=== PATIENT | female | born 2000 | race Caucasian/White ===

== ENCOUNTER 2020-04-02 19:04 | Emergency (ER) | payer BC, SELFPAY ==
[2020-04-02 19:17] VITALS: BP 143/91; PULSE 77; RESP 21; TEMP 36.6; O2SAT 99; BMI 38.9
--- NOTE | 2020-04-02 19:29 | HMH.EDUTC ---
[facility] [place] Disposition Clinical Impression: Exposure to COVID-19 virus Disposition: Home, Self-Care Condition on Discharge: Good Instructions: Preventing the Spread of Coronavirus Discharge Instructions Additional Instructions: Drink plenty of fluids. Take tylenol or ibuprofen for pain or fever. Take the medications as directed. Follow up with your regular doctor. GO TO THE ER FOR ANY WORSENING SYMPTOMS FOLLOW THE DIRECTIONS ON THE COVID-19 HAND OUT THAT WE GAVE YOU REGARDING SELF-ISOLATION UNTIL YOU KNOW YOUR COVID-19 RESULTS Prescriptions: Ondansetron [Zofran 4mg ODT] 4 mg PO Q8HP PRN #20 tab.rapdis PRN Reason: Nausea Transmission Status: Received by [id number] Referrals: Sam Gustafson II [Primary Care Provider] - Forms: Work/School Release Time of Disposition: 19:34 Medical Decision Making - Medical Records Medical records reviewed: No: I reviewed the patient's medical records. - Arnaud Inquiry Pt receiving controlled substance: No Vital Signs: 04/02/20 19:17 04/02/20 19:41 Temperature 97.9 F 97.9 F Temperature Source Oral Oral Pulse Rate 77 Pulse Rate [Radial] 77 Respiratory Rate 21 21 Blood Pressure 143/91 H Blood Pressure [Right Arm] 143/91 H Blood Pressure Mean [Right Arm] 108 Blood Pressure Source Automatic Cuff Blood Pressure Source [Right Arm] Automatic Cuff Blood Pressure Position Sitting Blood Pressure Position [Right Arm] Sitting 02 Sat by Pulse Oximetry 99 Oxygen Delivery Method Room Air Room Air [facility] [place] HPI - General Stated complaint: wants COVID Testing Time Seen by Provider: 04/02/20 19:29 Mode of Arrival: Ambulatory Source of Information: Patient Limitations: No Limitations Description of Symptoms (Recalled from Triage Doc. 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 Reports that she has been nauseous, headache, cough, runny nose. 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 She has had nausea and a runny nose, but no fever or chills. - Related Data Home Medications Medication Instructions Recorded Confirmed sertraline 50 mg tablet 50 mg PO DAILY 07/10/19 10/22/19 Previous Rx's Medication Instructions Recorded Amoxicillin/Potassium Clav 1 tab PO Q12H 10 Days #20 tab 10/22/19 [Augmentin 875-125 Tablet] Ondansetron [Zofran 4mg ODT] 4 mg PO Q8HP PRN #9 tab.rapdis 10/22/19 predniSONE [Deltasone 10mg tablet] 10 mg PO BID 3 Days #6 tab 10/22/19 Ondansetron [Zofran 4mg ODT] 4 mg PO Q8HP PRN #20 tab.rapdis 04/02/20 Allergies Allergy/AdvReac Type Severity Reaction Status Date / Time No Known Allergies Allergy Verified 09/17/19 10:31 - Worker's Comp Is this a Worker's Comp case?: No [facility] History - Hepatitis A Screen Drug use history?: No High risk sexual behaviors?: No History of sexually transmitted infection?: No Currently employed?: No Childcare worker?: No Do you have indoor plumbing?: Yes Do you have electricity?: Yes Attestation statement:: This patient has been screened for Hepatitis A risk factors. I have reviewed the patient's past medical history: Yes Medical History: Reports:: Anxiety Other Medical History: Reports: Thyroid Disease Comment: left great toe surgery x2 - Social History Smoking Status: Never smoker Alcohol Intake: never Substance Use Type: denies use Occupational Status: employed Housing: house Household Members: family - Psychiatric History Pschychiatric History:: Reports:: Anxiety Family Hx:: Non-contributory ROS Obtained: Yes All systems reviewed & no additional complaints - Constitutio
[2020-04-02 19:41] VITALS: BP 143/91; PULSE 77; RESP 21; TEMP 36.6; O2SAT 99
== END 2020-04-02 19:41 | disposition home or self-care (01) ==
PROVIDERS: Emergency Provider Nurse Practitioner Family; PCP Family Medicine
DX: Z20.828 Contact with and (suspected) exposure to other viral communicable diseases (principal)
CPT/HCPCS: 99201; U0003

== ENCOUNTER 2020-07-21 09:24 | Emergency (ER) | payer BC, SELFPAY ==
[2020-07-21 09:25] VITALS: BP 145/88; PULSE 109; RESP 18; TEMP 37; O2SAT 98; BMI 38.9
--- NOTE | 2020-07-21 10:02 | HMH.EDUTC ---
[facility] [place] Disposition Clinical Impression: Nausea Sinusitis Qualifiers: Sinusitis location: unspecified location Chronicity: unspecified Qualified Code(s): J32.9 - Chronic sinusitis, unspecified Disposition: Home, Self-Care Condition on Discharge: Good Instructions: Sinusitis, DI for Sinusitis, Amoxicillin and Clavulanic Acid, Methylprednisolone Additional Instructions: *Monitor Temp, Over the counter Motrin or Tylenol as directed/as needed Tylenol every 4 hours and Motrin every 6 hours (as long as your family doctor has told you that you can take it) for fever or pain. and straight to ER if unable to lower temp less than 101.0 after medication given *Warm salt water gargles may help to soothe the throat *Throat Lozenges *Warm fluids like tea with honey may help to soothe the throat *Sleep elevated *Humidifier/Vaporizer *Flonase 2 sprays in each nostril daily but be aware that it may take 2-3 days before you notice improvement Take medication as prescribed Return if needed Follow up IMMEDIATELY for new or worsening symptoms or no Noticeable improvement over the next 48-72 hours. 911 for difficulty breathing or swallowing Prescriptions: Amoxicillin/Potassium Clav [Augmentin 875-125 Tablet] 1 tab PO Q12H 7 Days #14 tab Transmission Status: P[facility] to [facility] Fluticasone Propionate [Flonase 50mcg nasal spray 16gm] 1 spr NS DAILY #1 bottle Transmission Status: Pending to [facility] methylPREDNISolone [Medrol 4mg tab] 4 mg PO DIRECTED #21 tab Transmission Status: Pending to [facility] Ondansetron [Zofran 4mg ODT] 4 mg PO TIDP PRN #9 tab PRN Reason: Nausea Transmission Status: [facility] Referrals: Sam Gustafson II [Primary Care Provider] - As needed Time of Disposition: 10:09 Medical Decision Making - Arnaud Inquiry Pt receiving controlled substance: No Arnaud was queried for this patient: No Vital Signs: 07/21/20 09:25 Temperature 98.6 F Temperature Source Oral Pulse Rate [Right Brachial] 109 H Respiratory Rate 18 Blood Pressure [Right Arm] 145/88 H Blood Pressure Mean [Right Arm] 107 Blood Pressure Source [Right Arm] Automatic Cuff Blood Pressure Position [Right Arm] Sitting 02 Sat by Pulse Oximetry 98 Oxygen Delivery Method Room Air [facility] [place] HPI - General Stated complaint: vomiting Time Seen by Provider: 07/21/20 10:02 Mode of Arrival: Ambulatory Source of Information: Patient Limitations: No Limitations Description of Symptoms (Recalled from Triage Doc. by RN): PATIENT C/O SINUS DRAINAGE, THROAT BURNING, AND NAUSEA/VOMITING SINCE YESTERDAY HEENT Symptoms (Recalled from RN notes): Yes Resp Symptoms (Recalled from RN notes): No Skin Symptoms (Recalled from RN notes): No MS Symptoms (Recalled from RN notes): No Functional Status (Recalled from RN notes): WNL - History of Present Illness Provider Complaint: Patient states that she has been having sinus pain and pressure for over a week States that for the last couple of days she has been having drainage that is making her throat irritated and making her have upset stomach States she feels like she has a sinus infection again - Related Data Home Medications Medication Instructions Recorded Confirmed sertraline 50 mg tablet 50 mg PO DAILY 07/10/19 07/21/20 Previous Rx's Medication Instructions Recorded Amoxicillin/Potassium Clav 1 tab PO Q12H 7 Days #14 tab 07/21/20 [Augmentin 875-125 Tablet] Fluticasone Propionate [Flonase 1 spr NS DAILY #1 bottle 07/21/20 50mcg nasal spray 16gm] Ondansetron [Zofran 4mg ODT] 4 mg PO TIDP PRN #9 tab 07/21/20 methylPREDNISolone [Medrol 4mg 4 mg PO DIRECTED #21 tab 07/21/20 tab] Allergies Allergy/AdvReac Type Severity Reaction Status Date / Time No Known Allergies Allergy Verified 09/17/19 10:31 - Worker's Comp Is this a Worker's Comp case?: No [facility] History - Hepatitis A Screen Drug use histor
[2020-07-21 10:15] VITALS: BP 145/88; PULSE 109; RESP 18; TEMP 37; O2SAT 98
== END 2020-07-21 10:18 | disposition home or self-care (01) ==
PROVIDERS: Emergency Provider Nurse Practitioner; PCP Family Medicine
DX: J32.9 Chronic sinusitis, unspecified (principal); F41.9 Anxiety disorder, unspecified; Z79.899 Other long term (current) drug therapy
CPT/HCPCS: 99201

== ENCOUNTER 2020-09-02 09:50 | Emergency (ER) | payer BC, SELFPAY ==
[2020-09-02 10:10] VITALS: BP 119/73; PULSE 88; RESP 19; TEMP 36.8; O2SAT 98; BMI 38.9
--- NOTE | 2020-09-02 10:32 | HMH.EDUTC ---
[facility] [place] Disposition Clinical Impression: Sore throat (viral) Disposition: Home, Self-Care Condition on Discharge: Good Instructions: Sore Throat Additional Instructions: *Monitor Temp, Over the counter Motrin or Tylenol as directed/as needed Tylenol every 4 hours and Motrin every 6 hours (as long as your family doctor has told you that you can take it) for fever or pain. and straight to ER if unable to lower temp less than 101.0 after medication given *Warm salt water gargles may help to soothe the throat *Throat Lozenges *Warm fluids like tea with honey may help to soothe the throat *Sleep elevated *Humidifier/Vaporizer *Flonase 2 sprays in each nostril daily but be aware that it may take 2-3 days before you notice improvement Your throat swab was sent for culture. Those results are typically sent to your primary care. Be sure to follow up in 2-3 days with your family doctor/primary care physician if no improvement so they can review those result and treat if necessary. If you don?t have a primary care doctor, I recommend you get one but in the mean time, you will have to return to a walk in clinic Follow up IMMEDIATELY for new or worsening symptoms or no Noticeable improvement over the next 48-72 hours. 911 for difficulty breathing or swallowing Referrals: Sam Gustafson II [Primary Care Provider] - As needed Time of Disposition: 10:34 Medical Decision Making - Arnaud Inquiry Pt receiving controlled substance: No Arnaud was queried for this patient: No Vital Signs: 09/02/20 10:10 Temperature 98.2 F Temperature Source Oral Pulse Rate [Right Brachial] 88 Respiratory Rate 19 Blood Pressure [Right Arm] 119/73 Blood Pressure Mean [Right Arm] 88 Blood Pressure Source [Right Arm] Automatic Cuff Blood Pressure Position [Right Arm] Sitting 02 Sat by Pulse Oximetry 98 Oxygen Delivery Method Room Air - Lab Data Lab results reviewed: Yes: I reviewed the patient's lab results. [facility] [place] HPI - General Stated complaint: Possible strep Time Seen by Provider: 09/02/20 10:32 Mode of Arrival: Ambulatory Source of Information: Patient Limitations: No Limitations Description of Symptoms (Recalled from Triage Doc. 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 and she wanted to get tested - Related Data Home Medications Medication Instructions Recorded Confirmed sertraline 50 mg tablet 50 mg PO DAILY 07/10/19 07/21/20 Previous Rx's Medication Instructions Recorded Amoxicillin/Potassium Clav 1 tab PO Q12H 7 Days #14 tab 07/21/20 [Augmentin 875-125 Tablet] Fluticasone Propionate [Flonase 1 spr NS DAILY #1 bottle 07/21/20 50mcg nasal spray 16gm] Ondansetron [Zofran 4mg ODT] 4 mg PO TIDP PRN #9 tab 07/21/20 methylPREDNISolone [Medrol 4mg 4 mg PO DIRECTED #21 tab 07/21/20 tab] Allergies Allergy/AdvReac Type Severity Reaction Status Date / Time No Known Allergies Allergy Verified 09/17/19 10:31 - Worker's Comp Is this a Worker's Comp case?: No [facility] History - Hepatitis A Screen Drug use history?: No High risk sexual behaviors?: No History of sexually transmitted infection?: No Currently employed?: No Childcare worker?: No Do you have indoor plumbing?: Yes Do you have electricity?: Yes Attestation statement:: This patient has been screened for Hepatitis A risk factors. I have reviewed the patient's past medical history: Yes Medical History: Reports:: Anxiety Other Medical History: Repo
[2020-09-02 10:36] VITALS: BP 119/73; PULSE 88; RESP 19; TEMP 36.8; O2SAT 98
[2020-09-02 21:06] LABS: UTC Strep Screen (Rapid) Negative (Negative)
== END 2020-09-02 10:40 | disposition home or self-care (01) ==
PROVIDERS: Emergency Provider Nurse Practitioner; PCP Family Medicine
DX: J02.9 Acute pharyngitis, unspecified (principal); Z86.16 Personal history of COVID-19; F41.9 Anxiety disorder, unspecified; Z79.899 Other long term (current) drug therapy
CPT/HCPCS: 87880; 99202; G0463

== ENCOUNTER 2020-11-08 18:20 | Emergency (ER) | payer BC, SELFPAY ==
[2020-11-08 18:31] VITALS: BP 148/97; PULSE 121; RESP 18; TEMP 37.1; O2SAT 100; BMI 40.2
[2020-11-08 18:42] VITALS: BP 143/91; PULSE 119; RESP 18; TEMP 36.6
[2020-11-08 18:42] LABS: UTC Strep Screen (Rapid) Positive (Negative)
[2020-11-08 18:43] LABS: UTC Influenza A Antigen Negative (Negative); UTC Influenza B Antigen Negative (Negative)
--- NOTE | 2020-11-08 18:44 | HMH.EDUTC ---
[facility] [place] Disposition Clinical Impression: Strep throat Disposition: Home, Self-Care Condition on Discharge: Good Instructions: DI for Strep Throat Additional Instructions: Start antibiotics today be sure to take it as ordered with the full length of time although you should start feeling better in 24-48 hours. Change toothbrush and toothpaste 24-48 hours after starting antibiotics Tylenol or Motrin as needed for fever or pain Encourage fluids, water, Gatorade, Powerade, try cold fluids, popsicles, ice cream will make it feel better You are contagious for 24 hours. Avoid kissing anyone, no eating or drinking after anyone. You are contagious. Follow-up the ER for new or worsening symptoms or no noticeable improvement over the next 24-48 hours. Follow-up with PCP this week. Prescriptions: cephALEXin [Cephalexin 500mg Tab] 500 mg PO BID 7 Days #14 tab [facility]: [facility] ondansetron HCL [Zofran 4mg Tab*] 4 mg PO TIDP PRN 3 Days #10 tab PRN Reason: Nausea Transmission Status: [facility] Referrals: Sam Gustafson II [Primary Care Provider] - Forms: Work/School Release Time of Disposition: 19:09 Medical Decision Making - Arnaud Inquiry Pt receiving controlled substance: No Vital Signs: 11/08/20 18:31 Temperature 98.8 F Temperature Source Oral Pulse Rate [Right] 121 H Respiratory Rate 18 Blood Pressure [Right Arm] 148/97 H Blood Pressure Mean [Right Arm] 114 Blood Pressure Source [Right Arm] Automatic Cuff Blood Pressure Position [Right Arm] Sitting 02 Sat by Pulse Oximetry 100 Oxygen Delivery Method Room Air - Lab Data Lab Results 11/08/20 18:25: Influenza Type A Ag Negative, Influenza Type B Ag Negative 11/08/20 18:25: Strep Scn Rapid [facility] Positive A Orders (Tests/Meds): ORDERS Category Date Time Status Covid-19 Nasal PCR ([facility]) Routine Lab 11/08/20 18:30 Received [facility] [place] HPI - General Chief complaint: Urgent [facility] Stated complaint: V&D, Body pain Time Seen by Provider: 11/08/20 18:44 Mode of Arrival: Ambulatory Source of Information: Patient Limitations: No Limitations Description of Symptoms (Recalled from Triage Doc. by RN): N/V/D, CHILLS/SWEATS, AND BODY ACHES. HEENT Symptoms (Recalled from RN notes): No Resp Symptoms (Recalled from RN notes): Yes (COUGH) Skin Symptoms (Recalled from RN notes): No MS Symptoms (Recalled from RN notes): No Functional Status (Recalled from RN notes): NA - History of Present Illness Provider Complaint: 20 yr old female presents for body aches, chills, sore throat and nausea that started today. - Related Data Home Medications Medication Instructions Recorded Confirmed sertraline 50 mg tablet 50 mg PO DAILY 07/10/19 09/02/20 Levonorgestrel/Ethin.estradiol 1 tab PO DAILY 09/02/20 09/02/20 [Enpresse-28 Tablet] Previous Rx's Medication Instructions Recorded cephALEXin [Cephalexin 500mg Tab] 500 mg PO BID 7 Days #14 tab 11/08/20 ondansetron HCL [Zofran 4mg Tab*] 4 mg PO TIDP PRN 3 Days #10 tab 11/08/20 Allergies Allergy/AdvReac Type Severity Reaction Status Date / Time No Known Allergies Allergy Verified 11/08/20 18:31 - Worker's Comp Is this a Worker's Comp case?: No [facility] History - Hepatitis A Screen Drug use history?: No High risk sexual behaviors?: No History of sexually transmitted infection?: No Currently employed?: No Childcare worker?: No Do you have indoor plumbing?: Yes Do you have electricity?: Yes Attestation statement:: This patient has been screened for Hepatitis A risk factors. I have reviewed the patient's past medical history: Yes Medical History: Reports:: Anxiety Other Medical History: Reports: Thyroid Disease Comment: left great toe surgery x2 - Social History Smoking Status: Unknown if ever smoked Alcohol Intake: never Substance Use Type: denies use Occupational Status: employed Housing: house Household Members
== END 2020-11-08 19:15 | disposition home or self-care (01) ==
PROVIDERS: Emergency Provider Nurse Practitioner Family; PCP Family Medicine
DX: J02.0 Streptococcal pharyngitis (principal); Z20.822 Contact with and (suspected) exposure to COVID-19
CPT/HCPCS: 87804; 87880; 99202; G0463; U0003

== ENCOUNTER 2021-03-19 14:33 | Emergency (ER) | payer BC, SELFPAY ==
[2021-03-19 15:14] VITALS: BP 128/83; PULSE 60; RESP 16; TEMP 36.9; O2SAT 98; BMI 39.4
--- NOTE | 2021-03-19 15:55 | HMH.EDUTC ---
[facility] [place] Clinical Impression: Otitis media Qualifiers: Otitis media type: suppurative Chronicity: acute Laterality: bilateral Recurrence: non-recurrent Spontaneous tympanic membrane rupture: without spontaneous rupture Qualified Code(s): H66.003 - Acute suppurative otitis media without spontaneous rupture of ear drum, bilateral Disposition: Home, Self-Care Condition on Discharge: Good Instructions: Middle Ear Infection Additional Instructions: Drink plenty of fluids. Take tylenol or ibuprofen for pain or fever. Take the medications as directed. Follow up with your regular doctor. GO TO THE ER FOR ANY WORSENING SYMPTOMS Prescriptions: Pseudoephedrine HCl 30 mg PO Q6HP PRN #30 tab PRN Reason: Congestion Transmission Status: Received by [facility] Amoxicillin/Potassium Clav [Augmentin 875-125 Tablet] 1 tab PO Q12H 10 Days #20 tab Transmission Status: Received by [facility] predniSONE [Prednisone 20mg Tab] 20 mg PO BID 4 Days #8 tab Transmission Status: Received by [facility] Referrals: Provider,Referral, [Primary Care Provider] - Forms: Work/School Release Time of Disposition: 16:00 Medical Decision Making - Medical Records Medical records reviewed: No: I reviewed the patient's medical records. - Arnaud Inquiry Pt receiving controlled substance: No Vital Signs: 03/19/21 15:14 03/19/21 16:01 Temperature 98.4 F 98.4 F Temperature Source Oral Pulse Rate 63 Pulse Rate [Left] 60 Respiratory Rate 16 14 Blood Pressure 130/81 Blood Pressure [Right Arm] 128/83 Blood Pressure Mean [Right Arm] 98 02 Sat by Pulse Oximetry 98 [facility] [place] - General Stated complaint: rt ear pain Time Seen by Provider: 03/19/21 15:30 Mode of Arrival: Ambulatory Source of Information: Patient Limitations: No Limitations Description of Symptoms (Recalled from Triage Doc. by RN): pt c/o a R ear ache and difficulty hearing. HEENT Symptoms (Recalled from RN notes): Yes (R ear ache and loss of hearing) Resp Symptoms (Recalled from RN notes): No Skin Symptoms (Recalled from RN notes): No MS Symptoms (Recalled from RN notes): No Functional Status (Recalled from RN notes): na - History of Present Illness Provider Complaint: She complains of right ear pain and decreased hearing in that ear. She has also had some left ear pressure, but no pain. She denies any fever/chills/body aches. - Related Data Home Medications Medication Instructions Recorded Confirmed sertraline 50 mg tablet 50 mg PO DAILY 07/10/19 09/02/20 Levonorgestrel/Ethin.estradiol 1 tab PO DAILY 09/02/20 09/02/20 [Enpresse-28 Tablet] Previous Rx's Medication Instructions Recorded cephALEXin [Cephalexin 500mg Tab] 500 mg PO BID 7 Days #14 tab 11/08/20 ondansetron HCL [Zofran 4mg Tab*] 4 mg PO TIDP PRN 3 Days #10 tab 11/08/20 Amoxicillin/Potassium Clav 1 tab PO Q12H 10 Days #20 tab 03/19/21 [Augmentin 875-125 Tablet] Pseudoephedrine HCl 30 mg PO Q6HP PRN #30 tab 03/19/21 predniSONE [Prednisone 20mg 20 mg PO BID 4 Days #8 tab 03/19/21 Tab] Allergies Allergy/AdvReac Type Severity Reaction Status Date / Time No Known Allergies Allergy Verified 03/19/21 15:22 - Worker's Comp Is this a Worker's Comp case?: No [facility] History - Hepatitis A Screen Drug use history?: No High risk sexual behaviors?: No History of sexually transmitted infection?: No Currently employed?: No Childcare worker?: No Do you have indoor plumbing?: Yes Do you have electricity?: Yes Attestation statement:: This patient has been screened for Hepatitis A risk factors. I have reviewed the patient's past medical history: Yes Medical History: Reports:: Anxiety Other Medical History: Reports: Thyroid Disease Comment: left great toe surgery x2 - Social History Smoking Status: Unknown if ever smoked Alcohol Intake: never Substance Use Type: denies use Occupational Status: employed Housing: house
[2021-03-19 16:01] VITALS: BP 130/81; PULSE 63; RESP 14; TEMP 36.9
== END 2021-03-19 16:04 | disposition home or self-care (01) ==
PROVIDERS: Emergency Provider Nurse Practitioner Family
DX: H66.003 Acute suppurative otitis media without spontaneous rupture of ear drum, bilateral (principal); F41.9 Anxiety disorder, unspecified
CPT/HCPCS: 99202; G0463

== ENCOUNTER 2022-08-16 13:18 | Emergency (ER) | payer BC, SELFPAY ==
[2022-08-16 15:45] VITALS: BP 116/76; PULSE 79; RESP 19; TEMP 37; O2SAT 99; BMI 33.7
[2022-08-16 16:12] LABS: UTC Influenza A Antigen Negative (Negative); UTC Influenza B Antigen Negative (Negative); UTC Strep Screen (Rapid) Negative (Negative)
--- NOTE | 2022-08-16 16:14 | EXP.UTC ---
Discharge Plan Disposition Patient Disposition: Home, Self-Care Condition: Good Prescriptions Prescriptions: New azithromycin [Zithromax Z-Jelani] 250 mg tablet See Rx Instructions .ROUTE .COMPLEX 5 Days Qty: 6 0RF Rx Instructions: For 250 mg dose pack: take 500 mg today (day 1), then 250 mg for 4 days (days 2-5) No Action escitalopram oxalate 10 mg tablet 10 mg PO DAILY Referrals Follow up/Referrals: Sam Gustafson II, MD [Primary Care Provider] - See instructions Activity Restrictions/Add. Instructions Additional Instructions/Restrictions: *Monitor Temp, Over the counter Motrin or Tylenol as directed/as needed Tylenol every 4 hours and Motrin every 6 hours (as long as your family doctor has told you that you can take it) for fever or pain. and straight to ER if unable to lower temp less than 101.0 after medication given *Warm salt water gargles may help to soothe the throat *Throat Lozenges? *Warm fluids like tea with honey may help to soothe the throat? *Sleep elevated *Humidifier/Vaporizer Your throat swab was sent for culture. Those results are typically sent to your primary care. Be sure to follow up in 2-3 days with your family doctor/primary care physician if no improvement so they can review those result and treat if necessary. If you don?t have a primary care doctor, I recommend you get one but in the mean time, you will have to return to a walk in clinic Follow up IMMEDIATELY for new or worsening symptoms or no Noticeable improvement over the next 48-72 hours. 911 for difficulty breathing or swallowing Clinical Impressions Clinical Impression: Upper respiratory tract infection Qualifiers: URI type: unspecified URI Qualified Code(s): J06.9 - Acute upper respiratory infection, unspecified Stand Alone Forms Stand Alone Forms: Work/School Release Instructions Patient Instructions: Strep Throat, DI for Strep Throat Discharge ED Provider: Yessi Mac [facility] General Stated complaint: Sore throat, fever, headache, bodyache Mode of Arrival: Ambulatory Source of Information: Patient Limitations: No Limitations Time Seen by Provider: 08/16/22 16:14 Description of Symptoms (Recalled from Triage Doc. by RN): PATIENT C/O SORE THROAT, LOW-GRADE FEVER, BODY ACHES, HEADACHE, AND COLD CHILLS SINCE TUESDAY HEENT Symptoms (Recalled from RN notes): Yes Resp Symptoms (Recalled from RN notes): No Skin Symptoms (Recalled from RN notes): No MS Symptoms (Recalled from RN notes): No Functional Status (Recalled from RN notes): WNL History of Present Illness Provider Complaint: Patient states that she started feeling bad on Tuesday and has got worse States that she has been having chills and bodyaches, along with sore throat States that today her sore throat is worse and feels like she is swallowing razor blades and she has continued to feel worse so she came in Related Data Home Medications Medication Instructions Recorded Confirmed escitalopram oxalate 10 mg tablet 10 mg PO DAILY PTSD 08/16/22 08/16/22 Previous Rx's Medication Instructions Recorded azithromycin 250 mg tablet See Rx Instructions PO .COMPLEX 5 08/16/22 (Zithromax Z-Jelani) days #6 tabs Allergies Allergy/AdvReac Type Severity Reaction Status Date / Time No Known Allergies Allergy Verified 03/19/21 15:22 Worker's Comp Is this a Worker's Comp case?: No [facility] [place] Disclaimer: The information contained in this section may have been updated after the patient was seen, as this information can be updated by other users. Medical History (Updated 08/16/22 @ 16:25 by Yessi Mac APRN) Anxiety Social History (Updated 08/16/22 @ 16:05 by Shira Bran RN) Smoking Status: Unknown if ever smoked alcohol intake: never substance use type: denies use current occupational status: employed Travel in the last 8 weeks: None household members: family housing: house ROS
[2022-08-16 16:38] VITALS: BP 116/76; PULSE 79; RESP 19; TEMP 37; O2SAT 99
== END 2022-08-16 16:40 | disposition home or self-care (01) ==
PROVIDERS: Emergency Provider Nurse Practitioner; PCP Family Medicine
DX: J06.9 Acute upper respiratory infection, unspecified (principal)
CPT/HCPCS: 87804; 87880; 99212; G0463

== ENCOUNTER 2022-09-13 10:10 | Emergency (ER) | payer BC, SELFPAY ==
[2022-09-13 10:15] VITALS: BP 152/102; PULSE 98; RESP 20; TEMP 36.8; O2SAT 100; BMI 45.7
--- NOTE | 2022-09-13 10:27 | EXP.UTC ---
Discharge Plan Disposition Patient Disposition: Home, Self-Care Condition: Good Prescriptions Prescriptions: New methylprednisolone [Medrol (Jelani)] 4 mg tablets,dose pack See Rx Instructions .Route .COMPLEX 6 Days Qty: 21 0RF Rx Instructions: taper pack; amoxicillin-pot clavulanate 875-125 mg Tablet 1 tab PO Q12H Qty: 20 0RF No Action escitalopram oxalate 10 mg tablet 10 mg PO DAILY Referrals Follow up/Referrals: Sam Gustafson II, MD [Primary Care Provider] - See instructions Activity Restrictions/Add. Instructions Additional Instructions/Restrictions: *Monitor Temp, Over the counter Motrin or Tylenol as directed/as needed Tylenol every 4 hours and Motrin every 6 hours (as long as your family doctor has told you that you can take it) for fever or pain. and straight to ER if unable to lower temp less than 101.0 after medication given *Warm salt water gargles may help to soothe the throat *Throat Lozenges? *Warm fluids like tea with honey may help to soothe the throat? *Sleep elevated *Humidifier/Vaporizer Take medication as prescribed Follow up IMMEDIATELY for new or worsening symptoms or no Noticeable improvement over the next 48-72 hours. 911 for difficulty breathing or swallowing Clinical Impressions Clinical Impression: Sinusitis Stand Alone Forms Stand Alone Forms: Work/School Release Instructions Patient Instructions: Sinusitis, DI for Sinusitis Discharge ED Provider: Yessi Mac [facility] [place] General Stated complaint: Congestion, headache, cough, drainage, loss taste Mode of Arrival: Ambulatory Source of Information: Patient Limitations: No Limitations Time Seen by Provider: 09/13/22 10:27 Description of Symptoms (Recalled from Triage Doc. by RN): PATIENT C/O CONGETION, HEADACHE, NAUSEA, NO TASTE/SMELL, COUGH, AND EYE DRAINAGE SINCE TUESDAY HEENT Symptoms (Recalled from RN notes): Yes Resp Symptoms (Recalled from RN notes): Yes Skin Symptoms (Recalled from RN notes): No MS Symptoms (Recalled from RN notes): No Functional Status (Recalled from RN notes): WNL History of Present Illness Provider Complaint: Patient states that she started getting sick last week and it has continued to get worse States that she has been having sinus congestion and pressure, cough, runny nose, states that nothing tastes right due to the drainage, sore throat and headache and today she has had some pressure behind her ears and nausea and wasnt feeling any better so she came in to get checked out Related Data Home Medications Medication Instructions Recorded Confirmed escitalopram oxalate 10 mg tablet 10 mg PO DAILY PTSD 08/16/22 09/13/22 Previous Rx's Medication Instructions Recorded amoxicillin 875 mg-potassium 1 tab PO Q12H #20 tabs 09/13/22 clavulanate 125 mg tablet methylprednisolone 4 mg tablets in See Rx Instructions .Route 09/13/22 a dose pack (Medrol (Jelani)) .COMPLEX 6 days #21 tabs Allergies Allergy/AdvReac Type Severity Reaction Status Date / Time No Known Allergies Allergy Verified 03/19/21 15:22 Worker's Comp Is this a Worker's Comp case?: No [facility] Disclaimer: The information contained in this section may have been updated after the patient was seen, as this information can be updated by other users. Medical History (Updated 09/13/22 @ 10:44 by Yessi Mac APRN) Anxiety Social History (Updated 09/13/22 @ 10:26 by Shira Bran RN) Smoking Status: Unknown if ever smoked alcohol intake: never substance use type: denies use current occupational status: employed Travel in the last 8 weeks: None household members: family housing: house ROS Obtained: Yes All systems reviewed & no additional complaints except as documented and Yes Systems reviewed as appropriate & no additional complaints except as documented Constitutional Constitutional: Reports system reviewed and no additional complaints, ex
[2022-09-13 10:38] LABS: UTC Influenza A Antigen Negative (Negative); UTC Influenza B Antigen Negative (Negative)
[2022-09-13 11:00] VITALS: BP 152/102; PULSE 98; RESP 20; TEMP 36.8; O2SAT 100
[2022-09-13 11:06] LABS: UTC Pregnancy Test, Urine Negative (Negative)
== END 2022-09-13 11:04 | disposition home or self-care (01) ==
PROVIDERS: Emergency Provider Nurse Practitioner; PCP Family Medicine
DX: J32.9 Chronic sinusitis, unspecified (principal)
CPT/HCPCS: 81025; 87804; 99212; 99213; G0463